=== PATIENT | male | born 1995 | race Caucasian/White ===

== ENCOUNTER 2019-02-11 22:12 | Emergency (ER) | payer OTHER ==
[2019-02-11 22:25] VITALS: RESP 18
[2019-02-11] MEDS ORDERED: SODIUM CHLORIDE 0.9% IRRIG 1,000 ML BTL IRRIGATION ONE (22:42)
[2019-02-11] MEDS ORDERED: LIDOCAINE 1% INJ 10MG/ML (20 ML MDV) SQ ONE (22:42)
[2019-02-11] MEDS ORDERED: DIPH,PERTUS(ACELL)TETVAC-LF 0.5 ML VIAL IM ONE (22:44)
--- NOTE | 2019-02-11 22:45 | ED ---
Wound/Laceration HPI - General Source: patient Mode of arrival: ambulatory Limitations: no limitations <Sarah Dudley - Last Filed: 02/12/19 01:47> <Shilpi Duque - Last Filed: 02/12/19 03:46> - General Chief Complaint: Wound/Laceration Stated Complaint: Exposure, Finger Lac [facility] Time Seen by Provider: 02/11/19 22:29 - History of Present Illness Initial Comments: 23-year-old male patient presents to the emergency department today for evaluation of laceration to the right index finger. Patient was on the scene of an accident and accidentally cut his finger on some exposed glass. Patient denies any difficulty with range of motion of the finger. Denies any numbness or tingling to the finger. He is unsure when his last tetanus vaccine was given. Denies any other injuries. Patient denies any headache, neck pain, back pain, chest pain, shortness of breath, dizziness, weakness, abdominal pain, na usea, vomiting, or difficulties with bowel movements or urination. (Sarah Dudley) - Related Data Home Medications Medication Instructions Recorded Confirmed No Known Home Medications 02/11/19 02/11/19 Allergies Allergy/AdvReac Type Severity Reaction Status Date / Time hydromorphone [From Dilaudid] AdvReac Itching Verified 02/11/19 22:30 Review of Systems ROS Other: All systems not noted in ROS Statement are negative. <Sarah Dudley - Last Filed: 02/12/19 01:47> ROS Other: All systems not noted in ROS Statement are negative. <Shilpi Duque - Last Filed: 02/12/19 03:46> ROS Statement: Those systems with pertinent positive or pertinent negative responses have been documented in the HPI. Past Medical History Past Medical History: No Reported History History of Any Multi-Drug Resistant Organisms: None Reported Past Surgical History: Ear Surgery, Tonsillectomy Additional Past Surgical History / Comment(s): plate and screws L leg, Past Psychological History: No Psychological Hx Reported Smoking Status: Current every day smoker Past Alcohol Use History: Rare Past Drug Use History: None Reported <Sarah Dudley - Last Filed: 02/12/19 01:47> General Exam Limitations: no limitations General appearance: alert, in no apparent distress, other (Physical well- developed, well-nourished adult male patient in no acute distress. Vital signs upon presentation are temperature 98.8F, pulse 128, respirations 18, blood pressure 164/92, pulse ox 96% on room air.) Eye exam: Present: normal appearance, PERRL, EOMI. Absent: scleral icterus, conjunctival injection, periorbital swelling ENT exam: Present: normal exam, normal oropharynx, mucous membranes moist Respiratory exam: Present: normal lung sounds bilaterally. Absent: respiratory distress, wheezes, rales, rhonchi, stridor Cardiovascular Exam: Present: regular rate, normal rhythm, normal heart sounds. Absent: systolic murmur, diastolic murmur, rubs, gallop, clicks Extremities exam: Present: full ROM, normal capillary refill, other (There is a 3 cm laceration noted to the dorsal surface of the right index finger over the proximal phalanx. Patient has full range of motion with and without resistance of the index finger. Good cap refill. Radial pulses 2+ equal bilaterally. Skin is pink, warm, and dry.). Absent: normal inspection, tenderness, pedal edema, joint swelling, calf tenderness Neurological exam: Present: alert, oriented X3, CN II-XII intact Psychiatric exam: Present: normal affect, normal mood Skin exam: Present: warm, dry, intact, normal color. Absent: rash <Sarah Dudley - Last Filed: 02/12/19 01:47> Course Vital Signs 02/11/19 02/12/19 22:21 00:26 Temperature 98.8 F 98.0 F Pulse Rate 128 H 97 Respiratory 18 18 Rate Blood Pressure 164/92 143/78 O2 Sat by Pulse 96 99 Oximetry Procedures - Laceration Laceration #1 Consent Obtained: verbal consent Indication: laceration Site: hand (right index finger) Size (cm): 3 Description: flap Depth: simple, single layer Anesthetic Used: lidocaine 1% Anesthesia Technique: local infiltration Amount (mls): 5 Pre-repair: irrigated extensively Type of Sutures: nylon Size of Sutures: 5-0 Number of Sutures: 3 Technique: simple, interrupted Patient Tolerated Procedure: well, no complications <Sarah Dudley Filed: 02/12/19 01:47> Medical Decision Making - Radiology Data Radiology results: report reviewed, image reviewed <Sarah Dudley - Last Filed: 02/12/19 01:47> <Shilpi Duque - Last Filed: 02/12/19 03:46> - Medical Decision Making 23-year-old male patient presents the emergency department today for evaluation of laceration to the right index finger. Physical examination did reveal a 3 cm laceration to the dorsal surface of the right index finger over the proximal phalanx. Patient had full range of motion with him without resistance. Neurovascular status is intact. X-ray was negative for any bony injury or foreign body. Laceration was repaired as documented. He is instructed to return in 7 days for suture removal. He was educated regarding signs or symptoms of infection. He is instructed to follow-up with the primary care physician or employee health services for further evaluation as soon as possible. Return parameters discussed in detail. He verbalizes understanding and agrees with this plan. (Sarah Dudley) I was available for consultation in the emergency department. The history and physical exam were done by the Midlevel Provider. Medical decision making was done by the Midlevel Provider. I have reviewed the chart, however was not consulted specifically or made aware of this patient by the above midlevel provider and did not personally evaluate, interact with, or disposition this patient on the day of their visit Chart was dictated using [employer] dictation software. Attempts were made to correct any dictation errors however some typographical errors may persist. (Shilpi Duque) - Radiology Data Two-view x-ray of the right index finger is obtained. Report was reviewed in its entirety. Impression by Dr. Velasco shows normal x-rays of the visualized right fingers. (Sarah Dudley) Disposition Is patient prescribed a controlled substance at d/c from ED?: No <Sarah Dudley - Last Filed: 02/12/19 01:47> <Shilpi Duque - Last Filed: 02/12/19 03:46> Clinical Impression: Laceration of right index finger Disposition: HOME SELF-CARE Condition: Good Instructions (If sedation given, give patient instructions): Care For Your Stitches (ED), Finger Laceration (ED) Additional Instructions: Keep wound clean and dry. Cleanse twice daily with warm water and antibacterial soap. Have stitches removed in 7 days. Follow-up with your primary care physician or employee health for further evaluation 12 days. Return to the emergency department immediately for any new, worsening, or concerning symptoms. Referrals: Simón Welch DO [Primary Care Provider] - 1-2 days
--- NOTE | 2019-02-11 23:53 | XR ---
EXAM: XR Right Finger(s), 2 or More Views CLINICAL HISTORY: ITS.REASON XR Reason: R/O foreign body TECHNIQUE: Frontal, lateral and oblique views of finger(s) of the right hand. COMPARISON: No relevant prior studies available. FINDINGS: Bones/joints: Unremarkable. No acute fracture. No dislocation. Soft tissues: Unremarkable. No radiopaque foreign body. IMPRESSION: Normal x-rays of the visualized right fingers.
[2019-02-12 00:27] VITALS: BP 143/78; PULSE 97; TEMP 98
== END 2019-02-12 00:28 | disposition home or self-care (01) ==
LOC: EC 22:12
DX: S61.210A Laceration without foreign body of right index finger without damage to nail, initial encounter (principal); F17.200 Nicotine dependence, unspecified, uncomplicated; Z88.5 Allergy status to narcotic agent; Z23 Encounter for immunization; W25.XXXA Contact with sharp glass, initial encounter; Y93.89 Activity, other specified; Y92.89 Other specified places as the place of occurrence of the external cause; Y99.0 Civilian activity done for income or pay
CPT/HCPCS: 73140; 90715; 99283; 12002; 90471; J2001

== ENCOUNTER 2019-03-19 14:37 | Emergency (ER) | payer OTHER ==
--- NOTE | 2019-03-19 15:36 | ED ---
General Adult HPI - General Chief complaint: Extremity Injury, Lower Stated complaint: RT ankle injury Time Seen by Provider: 03/19/19 14:59 Source: patient Mode of arrival: ambulatory Limitations: no limitations - History of Present Illness Initial comments: Patient is a 23-year-old male presenting to emergency Department with right ankle pain. Patient reports earlier today he was jumping on a trampoline when he landed on that and rolled his ankle. Patient states the pain is at the lateral malleolus of the right foot. Patient reports pain is exacerbated with dorsi and plantar flexion. Patient reports the pain is a 3 and dull. Patient reports pain is alleviated at rest. Patient denies taking medication to alleviate the symptoms. Patient denies numbness or tingling or any radiation of the pain. - Related Data Home Medications Medication Instructions Recorded Confirmed No Known Home Medications 02/11/19 02/11/19 Allergies Allergy/AdvReac Type Severity Reaction Status Date / Time hydromorphone [From Dilaudid] AdvReac Itching Verified 02/11/19 22:30 Review of Systems ROS Statement: Those systems with pertinent positive or pertinent negative responses have been documented in the HPI. ROS Other: All systems not noted in ROS Statement are negative. Past Medical History Past Medical History: No Reported History History of Any Multi-Drug Resistant Organisms: None Reported Past Surgical History: Ear Surgery, Tonsillectomy Additional Past Surgical History / Comment(s): plate and screws L leg, Past Psychological History: No Psychological Hx Reported Smoking Status: Current every day smoker Past Alcohol Use History: Rare Past Drug Use History: None Reported General Exam - General Exam Comments Initial Comments: General: Well-developed well-nourished distress HEENT: Normocephalic/atraumatic, PERLL, pharynx erythema, swallowing well, EAC no erythema, no exudates, TM clear, no cervical lymph nodes Neck: Supple, nontender, trachea midline Chest/Lungs: Normal respirations, no signs of respiratory distress clear to auscultation bilaterally no wheezes, rales, rhonchi Cardiac: Regular rate and rhythm, normal S1-S2, no murmurs rubs or gallops Abdomen/GI: Soft nontender, bowel sounds equal or quadrant x4, no guarding, no rebound no CVA tenderness Musculoskeletal: Tenderness along the lateral malleolus of the right ankle, mild edema on the right ankle but no erythema or skin discoloration. Limited range of motion due to pain. Skin: Warmth, no rashes or lesions, no cyanosis or diaphoresis Neurologic: AAO x 3, CN 2-12 intact, Psychiatric: Mood and affect normal, judgment normal Limitations: no limitations Course Vital Signs 03/19/19 03/19/19 15:00 16:16 Temperature 99 F 96.8 F L Pulse Rate 73 61 Respiratory 17 18 Rate Blood Pressure 162/80 137/69 O2 Sat by Pulse 95 98 Oximetry Procedures - Orthopedic Splinting/Casting Injury #1 Side: right Lower Extremity Injury Location: ankle Lower Extremity Immobilizer: stirrup splint, Da wrap Medical Decision Making - Medical Decision Making Patient is a 23-year-old male presents emergency Department with right ankle pain. X-ray of the right ankle is indicative of a chip fracture at this insertion point of the talofibular ligament on the lateral talus. Stirrup Splint was placed. Patient advised to alternate between Tylenol and ibuprofen for pain control, apply cold compress to minimize swelling and keep leg elevated. Patient advised to follow-up with orthopedics. Patient advised to return to emergency department if symptoms worsen. Case discussed with physician. Disposition Clinical Impression: Fractured talus Disposition: HOME SELF-CARE Condition: Stable Instructions (If sedation given, give patient instructions): Ankle Fracture (DC) Additional Instructions: Please follow-up with orthopedics. Please return to emergency department symptoms worsen. Keep leg elevated and alternate between Tylenol and ibuprofen for pain control. Apply cold compress to minimize swelling. Is patient prescribed a controlled substance at d/c from ED?: No Referrals: Simón Welch DO [Primary Care Provider] - 1-2 days Roman Mota PAC [PHYSICIAN STATION C[employer]IER] - 1-2 days Adalberto Moe DO [Medical Doctor] - 1-2 days Time of Disposition: 16:44
--- NOTE | 2019-03-19 15:56 | XR ---
EXAMINATION TYPE: XR ankle complete RT DATE OF EXAM: 03/19/2019 CLINICAL HISTORY: Right ankle pain after injury TECHNIQUE: Frontal, lateral and oblique images of the right ankle are obtained. COMPARISON: None. FINDINGS: Punctate osseous fragment near the insertion of the anterior tibiofibular ligament is seen that may represent a small avulsion fracture. No donor site is seen however. Minimal soft tissue swel ling of ankle joint is present. No additional fracture is identified. The ankle mortise appears withi n normal limits. The overlying soft tissue appears unremarkable. IMPRESSION: Questionable chip fracture near the insertion of the anterior talofibular ligament on the lateral talus without definite donor site.
[2019-03-19 16:17] VITALS: BP 137/69; PULSE 61; RESP 18; TEMP 96.8
== END 2019-03-19 16:45 | disposition home or self-care (01) ==
LOC: EC 14:37
DX: S92.141A Displaced dome fracture of right talus, initial encounter for closed fracture (principal); F17.200 Nicotine dependence, unspecified, uncomplicated; Z88.5 Allergy status to narcotic agent; X50.1XXA Overexertion from prolonged static or awkward postures, initial encounter; Y93.44 Activity, trampolining; Y92.69 Other specified industrial and construction area as the place of occurrence of the external cause; Y99.0 Civilian activity done for income or pay
CPT/HCPCS: 29515; 99283